=== PATIENT | female | born 1960 | race Caucasian/White ===

== ENCOUNTER 2017-07-19 10:22 | Emergency (ER) | payer BC ==
[~2017-07-19] VITALS: Ht 175.3 cm; Wt 86.0 kg
[~2017-07-19 10:22] MED LIST: AMBI10TA PO; ASPI325T24 PO; CLOR1TAB23 PO; NITR0.4S SL; SIMV20 PO; TIZA4 PO; TOPR50TA PO
[2017-07-19 10:28] VITALS: BP 136/60; PULSE 68; RESP 16; TEMP 97.8; O2SAT 96
[2017-07-19] MEDS ORDERED: METO50TA PO (10:35)
[2017-07-19] MEDS ORDERED: ZOLP10TA3 PO (10:35)
[2017-07-19] MEDS ORDERED: LEVO25TA4 PO (10:35)
--- NOTE | 2017-07-19 10:58 | PD ---
HPI Chief Complaint: Musculoskeletal Complaint Time Seen by Provider: 10:49 Travel History International Travel<30 days: No Contact w/Intl Traveler<30days: No Traveled to known affect area: No History of Present Illness HPI 57-year-old right-hand dominant female presents to the ED for evaluation 03/08 left elbow pain. Constant, worsened by attempted ROM. Alleviated by remaining motionless. Onset yesterday after the patient tripped and fell onto concrete. She denies hitting her head or loss of consciousness. She endorses limitations to range of motion secondary to pain. She denies numbness, tingling, weakness, previous injury to the area. She treated at home with a sling and a dose of NSAIDs, last dose last night. PFSH Past Medical History Arthritis: Yes Blood Disorders: No Anxiety: Yes Cancer: No Cardiovascular Problems: No Chemotherapy: No Endocrine: No Gastrointestinal Disorders: Yes GERD: Yes Genitourinary: No Hypertension: Yes Immune Disorder: No Musculoskeletal: Yes Neurologic: No Psychiatric: Yes Reproductive: Yes Respiratory: No Radiation Therapy: No Thyroid Disease: Yes Ulcer: Yes Past Surgical History Abdominal Surgery: Yes (APPENDECTOMY) AICD: No Joint Replacement: No Pacemaker: No Other Surgery: Yes Social History Alcohol Use: No Tobacco Use: No Substance Use: No Allergies-Medications (Allergen,Severity, Reaction): Coded Allergies: No Known Allergies (Verified Allergy, Unknown, 07/04/07) lisinopril (Verified Allergy, Unknown, 07/19/17) red dye (Verified Allergy, Unknown, 07/19/17) Reported Meds & Prescriptions Reported Meds & Active Scripts Active Ibuprofen 600 Mg Tab 600 Mg PO Q8HR PRN Reported Zolpidem (Zolpidem Tartrate) 10 Mg Tab Unknown Dose PO HS PRN Levothyroxine (Levothyroxine Sodium) 25 Mcg Tab Unknown Dose PO DAILY Metoprolol Tartrate 50 Mg Tab 50 Mg PO DAILY Review of Systems Except as stated in HPI: all other systems reviewed are Neg Physical Exam Narrative GENERAL: Well-nourished, well-developed pleasant white female in no acute distress, holding the left arm in flexion at the side. SKIN: Focused skin assessment warm/dry. HEAD: Normocephalic. EYES: No scleral icterus. No injection or drainage. NECK: Supple, trachea midline. No JVD or lymphadenopathy. CARDIOVASCULAR: Regular rate and rhythm without murmurs, gallops, or rubs. RESPIRATORY: Breath sounds equal bilaterally. No accessory muscle use. GASTROINTESTINAL: Abdomen soft, non-tender, nondistended. MUSCULOSKELETAL: No cyanosis, or edema. FOCUSED LEFT UPPER EXTREMITY EXAM: 2+ radial pulse. No tenderness to palpation of the shoulder joint. Tender to palpation of the anterior and posterior aspects of the elbow. Pronation and supination elicits pain. Patient is unable to extend the arm to 0 secondary to pain. Strong android platform developer strength. Sensation intact to light touch distally. BACK: Nontender without obvious deformity. No CVA tenderness. Data Data Last Documented VS Vital Signs Date Time Temp Pulse Resp B/P (MAP) Pulse Ox O2 Delivery O2 Flow Rate FiO2 07/19/17 10:28 97.8 68 16 136/60 (85) 96 Orders Orders Ice/Cold Pack (07/19/17 10:54) Acetamin-Hydrocod 325-5 Mg (Floris 5-325 (07/19/17 11:00) Elbow, Complete (4 Vws) (07/19/17 11:02) Support Splint (07/19/17 11:52) Ed Discharge Order (07/19/17 12:11) Sling Cradle Arm (07/19/17 ) MDM Medical Decision Making Medical Screen Exam Complete: Yes Emergency Medical Condition: Yes Differential Diagnosis Fracture versus dislocation versus contusion versus traumatic bursitis versus other Narrative Course 57-year-old right-hand dominant female presents to the ED for evaluation 03/08 left elbow pain. Constant, worsened by attempted ROM. Onset yesterday after the patient tripped and fell onto concrete. She denies hitting her head or LOC. She endorses limitations to range of motion secondary to pain. She denies numbness, tingling, weakness, previous injury to the area. Vitals reviewed. On exam the patient has tenderness to palpation of the elbow joint and pain elicited with supination and pronation. Icepack was applied. Patient was administered 5 mg Lortab by mouth. X-rays reveals 4 mm mildly depressed fracture of the radial head. Patient was provided with a supportive sling. I spoke with Dr. Dye who does not feel that surgical intervention is necessary. He recommends rest, ice, anti-inflammatories, return to normal, gentle activity as tolerated, follow-up in the office next week. I discussed this plan of care with the patient who is understanding and is agreeable. She is stable and discharged home. Diagnosis Primary Impression: Fracture of radial head, left, closed Qualified Codes: S52.125A - Nondisplaced fracture of head of left radius, initial encounter for closed fracture Referrals: Niels Dye Jr., MD Patient Instructions: Elbow Fracture (ED), General Instructions Additional Instructions: Rest, ice, elevate the extremity. Apply ice no longer than 10-15 minutes per hour a few times a day. 600 mg ibuprofen up to 3 times a day as needed for pain. Wear the splint as needed for support. Return to normal, gentle activity as tolerated. Follow up with Dr. Dye next week as discussed. Return to the ED for any urgent or emergent medical condition. Med/Other Pt SpecificInfo: Prescription(s) given Scripts Ibuprofen (Ibuprofen) 600 Mg Tab 600 MG PO Q8HR Y for PAIN, #15 TAB 0 Refills Prov: Jeronimo Villarreal MD 07/19/17 Disposition: 01 DISCHARGE HOME Condition: Stable Jillian Sheth Jul 19, 2017 10:58
[2017-07-19] MEDS ORDERED: ACETAMINOPHEN/HYDROcodone 325 MG/5 MG TAB PO ONE (11:00)
--- NOTE | 2017-07-19 11:48 | RADRPT ---
EXAM DATE/TIME: 07/19/2017 11:14 [facility] COMPARISON: No previous studies available for comparison. INDICATIONS : Left elbow pain post fall yesterday. MEDICAL HISTORY : None. SURGICAL HISTORY : None. ENCOUNTER: Initial ACUITY: 2 days PAIN SCORE: 9/10 LOCATION: Left elbow FINDINGS: Multiple view examination of the left elbow demonstrates a small fracture from the radial head latera lly. There is a moderate joint effusion. The fracture does extend into the articulating surface with the fragment measuring approximately 4 mm across. Bony mineralization is normal. CONCLUSION: Small fracture from the anterior radial aspect of the radial head measuring 4 mm across. Angel Levy MD on July 19, 2017 at 11:45 Board Certified Radiologist. This report was verified electronically.
[2017-07-19] MEDS ORDERED: IBUP-232 PO (12:11)
== END 2017-07-19 12:17 | disposition home or self-care (01) ==
LOC: PHEFT 10:22
DX: S52.125A Nondisplaced fracture of head of left radius, initial encounter for closed fracture (principal); W01.0XXA Fall on same level from slipping, tripping and stumbling without subsequent striking against object, initial encounter
CPT/HCPCS: 73080; 99283